=== PATIENT | female | born 1930 | race African-American/Black ===

== ENCOUNTER 2018-06-06 22:59 | Inpatient (IN) | payer MEDICARE, BC ==
[~2018-06-06] VITALS: Ht 167.6 cm; Wt 74.6 kg
[~2018-06-06 22:59] MED LIST: AMLO2.5T45 PO; LOPHC5 PO; RIVA10TA PO
[2018-06-06] MEDS ORDERED: SODIUM CHLORIDE 0.9% 500 ML IV ONE (23:22)
[2018-06-06] MEDS ORDERED: ATROPINE SULFATE 1MG/ML VIAL IV ONE (23:30)
[2018-06-06 23:33] LABS: BG BASE EXCESS -2.8 mmol/L (-2.0-2.0); BG CARBOXYHEMOGLOBIN 0.5 % (0.5-1.5); BG DEOXYHEMOGLOBIN 1.6 % (0.0-5.0); BG FRACTION INSPIRED OXYGEN 21; BG HCO3 ACT 18.6 mmol/L (22.0-26.0); BG METHEMOGLOBIN 0.3 % (0.0-1.5); BG OXYGEN SATURATION 98.4 % (92.0-98.5); BG OXYHEMOGLOBIN 97.6 % (94.0-97.0); BG PH 7.506 (7.350-7.450); BG PO2 108.5 mmHg (75.0-100.0); BG SAMPLE SITE RIGHT RADIAL; BG TOTAL HEMOGLOBIN 13.4 g/dL (12.0-18.0); BG VENT MODE ROOM AIR
[2018-06-07] VITALS (33 sets, daily range): BP systolic 98–168; BP diastolic 48–87
[2018-06-07 00:14] LABS: BASOPHILS % 0.3 % (0.0-2.0); EOSINOPHILS % 1.2 % (0.0-5.0); HEMATOCRIT. 37.6 % (36.0-48.0); LYMPHOCYTES % 14.9 % (20.0-50.0); MEAN CORPUSCULAR HEMOGLOBIN 29.4 pg (28.0-32.0); MEAN CORPUSCULAR VOLUME 91.8 fL (81.0-99.0); MEAN PLATELET VOLUME 9.5 fl (7.4-10.4); MONOCYTES % 10.4 % (2.0-8.0); NEUTROPHILS % 73.2 % (40.0-76.0); PLATELET 220 x1000/uL (130-400); RED BLOOD CELL COUNT 4.09 mill/uL (4.2-5.4); RED CELL DISTRIBUTION WIDTH 13.9 % (11.6-14.6)
[2018-06-07] MEDS ORDERED: DOPAMINE 400MG PREMIX 250 ML IV ONE ×5 (00:15→10:16)
[2018-06-07 00:19] LABS: INR 1.1; PARTIAL THROMBOPLASTIN TIME 35.1 sec (23.4-31.0); PROTHROMBIN TIME 10.9 sec (9.1-11.1)
[2018-06-07 00:20] LABS: CHLORIDE 104 mEq/L (98-107)
[2018-06-07 00:28] LABS: T4 FREE 1.22 ng/dL (0.76-1.46)
[2018-06-07] MEDS ORDERED: METOCLOPRAMIDE HCL 10MG/2ML VIAL IV ONE (01:15)
[2018-06-07] MEDS ORDERED: ASPIRIN 81MG TABLET PO ONE (02:00)
[2018-06-07] MEDS ORDERED: ONDANSETRON HCL 4MG/2ML INJ IV PRN ×2 (07:44→12:30)
[2018-06-07 12:09] LABS: INR 1.1; PROTHROMBIN TIME 11.4 sec (9.1-11.1)
[2018-06-07] MEDS ORDERED: MAGNESIUM/ALUMINUM HYDROXIDE/SIMETHICONE 30ML UDC PO PRN (12:30)
[2018-06-07] MEDS ORDERED: LORAZEPAM 0.5MG TABLET PO PRN (12:30)
[2018-06-07] MEDS ORDERED: ACETAMINOPHEN 325MG TABLET PO PRN (12:30)
[2018-06-07] MEDS ORDERED: DOPAMINE 800MG PREMIX 250 ML IV PRN (12:30)
[2018-06-07] MEDS ORDERED: ZOLPIDEM TARTRATE 5MG TABLET PO PRN (12:45)
[2018-06-07] MEDS ORDERED: MAGNESIUM HYDROXIDE 400MG/5ML 30ML UDC PO PRN (12:45)
[2018-06-07] MEDS ORDERED: GENTAMICIN/NS IRRIGATION 500 ML IR ONE (15:33)
[2018-06-07] MEDS ORDERED: CEFAZOLIN 1000MG PREMIX 100 ML IV ONE (15:33)
[2018-06-07] MEDS ORDERED: MIDAZOLAM HCL 2 MG/2 ML VIAL ONE (16:49)
[2018-06-07] MEDS ORDERED: DIPHENHYDRAMINE 50MG/ML VIAL ONE (16:50)
[2018-06-07] MEDS ORDERED: FENTANYL CITRATE/PF 50MCG/ML 2ML VIAL ONE (16:50)
[2018-06-07] MEDS ORDERED: LIDOCAINE HCL 1% 20ML VIAL (Pyxis) INJ ONE (17:07)
[2018-06-07] MEDS: TRAMADOL 50MG TABLET PO PRN (20:23)
[2018-06-07] MEDS ORDERED: VANCOMYCIN 1 G PREMIX 200 ML IV SCH (21:00)
[2018-06-07] MEDS ORDERED: DEXTROSE 50% WATER 50ML SYRINGE IV PRN (22:30)
[2018-06-07] MEDS: BLOOD SUGAR DIAGNOSTIC STRIP TEST SCH (22:38)
[2018-06-07] MEDS: INSULIN LISPRO 100 UNITS/ML SUBCUT SCH (23:00)
[2018-06-08] VITALS (42 sets, daily range): BP systolic 95–148; BP diastolic 22–119
[2018-06-08 06:36] LABS: BASOPHILS % 0.1 % (0.0-2.0); EOSINOPHILS % 0.1 % (0.0-5.0); HEMATOCRIT. 35.4 % (36.0-48.0); HEMOGLOBIN. 11.4 g/dL (12.0-16.0); LYMPHOCYTES % 11.5 % (20.0-50.0); MEAN CORPUSCULAR HEMOGLOBIN 29.5 pg (28.0-32.0); MEAN CORPUSCULAR VOLUME 91.9 fL (81.0-99.0); MEAN PLATELET VOLUME 9.5 fl (7.4-10.4); MONOCYTES % 10.4 % (2.0-8.0); NEUTROPHILS % 77.9 % (40.0-76.0); PLATELET 197 x1000/uL (130-400); RED BLOOD CELL COUNT 3.86 mill/uL (4.2-5.4); RED CELL DISTRIBUTION WIDTH 14.3 % (11.6-14.6)
[2018-06-08] MEDS: BLOOD SUGAR DIAGNOSTIC STRIP TEST SCH ×4 (07:50→20:48)
[2018-06-08] MEDS: INSULIN LISPRO 100 UNITS/ML SUBCUT SCH ×3 (08:20→20:48)
[2018-06-08] MEDS ORDERED: AMLODIPINE 2.5MG TABLET PO SCH (09:00)
[2018-06-08] MEDS: TRAMADOL 50MG TABLET PO PRN (09:07)
[2018-06-08] MEDS: APIXABAN 5 MG TABLET PO SCH ×2 (09:45→18:29)
[2018-06-08] MEDS ORDERED: METOPROLOL TARTRATE 25MG TABLET PO SCH (10:00)
[2018-06-08] MEDS: AMLODIPINE 5MG TABLET PO SCH ×2 (10:00→20:48)
[2018-06-08] MEDS ORDERED: VANCOMYCIN 500 MG PREMIX 100 ML IV SCH (12:00)
[2018-06-08] MEDS: JANUVIA 50 MG PO SCH (20:48)
[2018-06-09] VITALS (11 sets, daily range): BP systolic 108–167; BP diastolic 51–108
[2018-06-09] MEDS: BLOOD SUGAR DIAGNOSTIC STRIP TEST SCH ×3 (06:22→17:14)
[2018-06-09] MEDS: INSULIN LISPRO 100 UNITS/ML SUBCUT SCH ×3 (06:22→17:20)
[2018-06-09 07:30] LABS: BASOPHILS % 0.3 % (0.0-2.0); EOSINOPHILS % 1.5 % (0.0-5.0); HEMATOCRIT. 35.5 % (36.0-48.0); HEMOGLOBIN. 11.5 g/dL (12.0-16.0); LYMPHOCYTES % 15.7 % (20.0-50.0); MEAN CORPUSCULAR HEMOGLOBIN 29.8 pg (28.0-32.0); MEAN CORPUSCULAR VOLUME 91.8 fL (81.0-99.0); MEAN PLATELET VOLUME 9.9 fl (7.4-10.4); NEUTROPHILS % 72.5 % (40.0-76.0); PLATELET 210 x1000/uL (130-400); RED BLOOD CELL COUNT 3.87 mill/uL (4.2-5.4); RED CELL DISTRIBUTION WIDTH 14.1 % (11.6-14.6)
[2018-06-09] MEDS: AMLODIPINE 5MG TABLET PO SCH (08:41)
[2018-06-09] MEDS: APIXABAN 5 MG TABLET PO SCH ×2 (08:41→18:31)
[2018-06-09] MEDS: JANUVIA 50 MG PO SCH (08:42)
== END 2018-06-09 19:19 | DRG 261 ==
LOC: ER 22:59 → CVICU 23:58 → EDBEDREQTM 06-07 01:49 → EDBEDREQ 06-07 01:49 → EDBEDREQDT 06-07 01:49 → CANRESERV 06-07 07:03 → ENRESERV 06-07 07:03 → 3WST 06-08 17:49
PROVIDERS: ADMIT Specialist; ATTEND Specialist
PROC: 02WA3MZ Revision of Cardiac Lead in Heart, Percutaneous Approach (ICD-10-PCS; principal; 2018-06-07)
PROC: 4B02XSZ Measurement of Cardiac Pacemaker, External Approach (ICD-10-PCS; 2018-06-07)
DX: T82.128A Displacement of other cardiac electronic device, initial encounter (principal); I50.32 Chronic diastolic (congestive) heart failure; I44.2 Atrioventricular block, complete; I49.5 Sick sinus syndrome; I11.0 Hypertensive heart disease with heart failure; Y83.9 Surgical procedure, unspecified as the cause of abnormal reaction of the patient, or of later complication, without mention of misadventure at the time of the procedure; D72.829 Elevated white blood cell count, unspecified; E11.9 Type 2 diabetes mellitus without complications; I25.10 Atherosclerotic heart disease of native coronary artery without angina pectoris; I48.2 Chronic atrial fibrillation; Z79.01 Long term (current) use of anticoagulants; Z95.0 Presence of cardiac pacemaker; Z82.49 Family history of ischemic heart disease and other diseases of the circulatory system; Z90.710 Acquired absence of both cervix and uterus; Y92.89 Other specified places as the place of occurrence of the external cause; Z88.5 Allergy status to narcotic agent; Z88.8 Allergy status to other drugs, medicaments and biological substances; Z79.899 Other long term (current) drug therapy
CPT/HCPCS: 33215; 36415; 36600; 71045; 80048; 82375; 82805; 82962; 83735; 83880; 84439; 84443; 84484; 93005; 96361; 96374; 97116; 97162; 97530; 99291; A4565; J0461; J0690; J1200; J1265; J2250; J2405; J2765; J3010; J3370; J3490; J7040; J7050

== ENCOUNTER 2018-06-09 19:20 | Inpatient (IN) | payer MEDICARE, BC ==
[~2018-06-09] VITALS: Ht 167.6 cm; Wt 73.2 kg
[2018-06-09 20:00] VITALS: BP 130/58
[2018-06-09] MEDS ORDERED: LORAZEPAM 0.5MG TABLET PO PRN (21:15)
[2018-06-09] MEDS ORDERED: DEXTROSE 50% WATER 50ML SYRINGE IV PRN (21:15)
[2018-06-09] MEDS ORDERED: ONDANSETRON HCL 4MG/2ML INJ IV PRN (21:15)
[2018-06-09] MEDS ORDERED: MAGNESIUM HYDROXIDE 400MG/5ML 30ML UDC PO PRN (21:15)
[2018-06-09] MEDS ORDERED: TRAMADOL 50MG TABLET PO PRN ×2 (21:15→21:30)
[2018-06-09] MEDS ORDERED: MAGNESIUM/ALUMINUM HYDROXIDE/SIMETHICONE 30ML UDC PO PRN (21:15)
[2018-06-09] MEDS ORDERED: ZOLPIDEM TARTRATE 5MG TABLET PO PRN (21:15)
[2018-06-09] MEDS ORDERED: NON FORMULARY PATIENT HOME MED EA XX SCH (21:15)
[2018-06-09] MEDS ORDERED: ACETAMINOPHEN 325MG TABLET PO PRN (21:15)
[2018-06-09] MEDS: INSULIN LISPRO 100 UNITS/ML SUBCUT SCH (22:00)
[2018-06-09] MEDS: AMLODIPINE 5MG TABLET PO SCH (22:10)
[2018-06-09] MEDS: BLOOD SUGAR DIAGNOSTIC STRIP TEST SCH (22:10)
[2018-06-10] MEDS: BLOOD SUGAR DIAGNOSTIC STRIP TEST SCH ×4 (06:21→21:03)
[2018-06-10 08:00] VITALS: BP 135/65
[2018-06-10] MEDS: INSULIN LISPRO 100 UNITS/ML SUBCUT SCH ×4 (09:00→21:00)
[2018-06-10] MEDS ORDERED: LINAGLIPTIN 5MG TABLET PO SCH (09:00)
[2018-06-10] MEDS: AMLODIPINE 5MG TABLET PO SCH ×2 (09:00→20:12)
[2018-06-10] MEDS: APIXABAN 5 MG TABLET PO SCH ×2 (09:31→17:35)
[2018-06-10] MEDS: JANUVIA 50 MG PO SCH (09:32)
[2018-06-10] MEDS: DOCUSATE SODIUM 100MG CAPSULE PO SCH (17:35)
[2018-06-10] MEDS: BISACODYL 5MG TABLET PO PRN (17:35)
[2018-06-10 20:00] VITALS: BP 165/78
[2018-06-10] MEDS: GABAPENTIN 100MG CAPSULE PO SCH (20:12)
[2018-06-10 21:00] VITALS: BP 153/74
[2018-06-11] MEDS: BISACODYL 5MG TABLET PO PRN (05:53)
[2018-06-11] MEDS: BLOOD SUGAR DIAGNOSTIC STRIP TEST SCH ×4 (05:53→21:36)
[2018-06-11] MEDS: INSULIN LISPRO 100 UNITS/ML SUBCUT SCH ×4 (05:53→21:00)
[2018-06-11 07:07] LABS: BASOPHILS % 0.2 % (0.0-2.0); HEMATOCRIT. 34.4 % (36.0-48.0); HEMOGLOBIN. 11.4 g/dL (12.0-16.0); LYMPHOCYTES % 16.8 % (20.0-50.0); MEAN CORPUSCULAR HEMOGLOBIN 30.2 pg (28.0-32.0); MEAN CORPUSCULAR VOLUME 91.4 fL (81.0-99.0); MEAN PLATELET VOLUME 9.3 fl (7.4-10.4); MONOCYTES % 10.5 % (2.0-8.0); NEUTROPHILS % 69.5 % (40.0-76.0); PLATELET 260 x1000/uL (130-400); RED BLOOD CELL COUNT 3.77 mill/uL (4.2-5.4); RED CELL DISTRIBUTION WIDTH 14.1 % (11.6-14.6)
[2018-06-11 07:36] LABS: CHLORIDE 109 mEq/L (98-107)
[2018-06-11] MEDS ORDERED: UBID50TA3 PO (07:46)
[2018-06-11] MEDS ORDERED: MULT-1195 PO (07:46)
[2018-06-11] MEDS ORDERED: CHOL100053 PO (07:46)
[2018-06-11] MEDS ORDERED: CALC1TAB4 PO (07:46)
[2018-06-11 08:00] VITALS: BP 138/66
[2018-06-11] MEDS: AMLODIPINE 5MG TABLET PO SCH ×2 (09:10→21:35)
[2018-06-11] MEDS: APIXABAN 5 MG TABLET PO SCH ×2 (09:10→17:37)
[2018-06-11] MEDS: DOCUSATE SODIUM 100MG CAPSULE PO SCH ×2 (09:10→17:37)
[2018-06-11] MEDS: JANUVIA 50 MG PO SCH (09:12)
[2018-06-11] MEDS ORDERED: NA PHOS,M-B/NA PHOS,DI-BA ENEMA 118ML PR PRN (11:30)
[2018-06-11] MEDS ORDERED: VIT D2 PO SCH (14:00)
[2018-06-11] MEDS: COQ10 100 MG PO SCH (14:47)
[2018-06-11] MEDS: CENTRUM SILVER TABLET PO SCH (14:47)
[2018-06-11] MEDS: VITAMIN B12 PO SCH (14:50)
[2018-06-11 20:00] VITALS: BP 146/62
[2018-06-11] MEDS: GABAPENTIN 100MG CAPSULE PO SCH (21:35)
[2018-06-11] MEDS: [UNRECOGNIZED DRUG - OTHER] PO SCH (21:36)
[2018-06-11] MEDS: CALTRATE PO SCH (21:36)
[2018-06-12] MEDS: BLOOD SUGAR DIAGNOSTIC STRIP TEST SCH ×4 (05:58→21:51)
[2018-06-12] MEDS: INSULIN LISPRO 100 UNITS/ML SUBCUT SCH ×4 (07:40→21:00)
[2018-06-12 08:00] VITALS: BP 133/69
[2018-06-12] MEDS: APIXABAN 5 MG TABLET PO SCH ×2 (09:24→17:24)
[2018-06-12] MEDS: DOCUSATE SODIUM 100MG CAPSULE PO SCH ×2 (09:24→17:24)
[2018-06-12] MEDS: COQ10 100 MG PO SCH (09:24)
[2018-06-12] MEDS: AMLODIPINE 5MG TABLET PO SCH ×2 (09:24→21:51)
[2018-06-12] MEDS: CENTRUM SILVER TABLET PO SCH (09:24)
[2018-06-12] MEDS: VITAMIN B12 PO SCH (09:26)
[2018-06-12] MEDS: JANUVIA 50 MG PO SCH (09:28)
[2018-06-12 20:00] VITALS: BP 125/62
[2018-06-12] MEDS: [UNRECOGNIZED DRUG - OTHER] PO SCH (21:50)
[2018-06-12] MEDS: GABAPENTIN 100MG CAPSULE PO SCH (21:50)
[2018-06-12] MEDS: CALTRATE PO SCH (21:50)
[2018-06-13] MEDS: BLOOD SUGAR DIAGNOSTIC STRIP TEST SCH ×4 (06:58→21:45)
[2018-06-13] MEDS: INSULIN LISPRO 100 UNITS/ML SUBCUT SCH ×4 (07:45→21:00)
[2018-06-13 07:53] VITALS: BP 134/68
[2018-06-13] MEDS: JANUVIA 50 MG PO SCH ×2 (09:00→18:59)
[2018-06-13] MEDS: APIXABAN 5 MG TABLET PO SCH ×2 (09:34→17:31)
[2018-06-13] MEDS: DOCUSATE SODIUM 100MG CAPSULE PO SCH ×2 (09:34→17:32)
[2018-06-13] MEDS: AMLODIPINE 5MG TABLET PO SCH ×2 (09:34→21:44)
[2018-06-13] MEDS: COQ10 100 MG PO SCH (09:35)
[2018-06-13] MEDS: VITAMIN B12 PO SCH (09:35)
[2018-06-13] MEDS: CENTRUM SILVER TABLET PO SCH (09:35)
[2018-06-13 20:00] VITALS: BP 160/58
[2018-06-13] MEDS: GABAPENTIN 100MG CAPSULE PO SCH (21:43)
[2018-06-13] MEDS: [UNRECOGNIZED DRUG - OTHER] PO SCH (21:44)
[2018-06-13] MEDS: CALTRATE PO SCH (21:44)
[2018-06-14] MEDS: INSULIN LISPRO 100 UNITS/ML SUBCUT SCH ×4 (06:38→21:00)
[2018-06-14] MEDS: BLOOD SUGAR DIAGNOSTIC STRIP TEST SCH ×4 (06:38→21:43)
[2018-06-14 07:13] LABS: BASOPHILS % 0.2 % (0.0-2.0); EOSINOPHILS % 3.7 % (0.0-5.0); HEMATOCRIT. 34.9 % (36.0-48.0); HEMOGLOBIN. 11.5 g/dL (12.0-16.0); LYMPHOCYTES % 17.8 % (20.0-50.0); MEAN CORPUSCULAR HEMOGLOBIN 29.9 pg (28.0-32.0); MEAN CORPUSCULAR VOLUME 90.4 fL (81.0-99.0); MEAN PLATELET VOLUME 8.8 fl (7.4-10.4); MONOCYTES % 12.4 % (2.0-8.0); NEUTROPHILS % 65.9 % (40.0-76.0); PLATELET 292 x1000/uL (130-400); RED BLOOD CELL COUNT 3.86 mill/uL (4.2-5.4); RED CELL DISTRIBUTION WIDTH 14.3 % (11.6-14.6)
[2018-06-14 08:00] VITALS: BP 133/66
[2018-06-14 08:16] LABS: CHLORIDE 107 mEq/L (98-107)
[2018-06-14] MEDS: DOCUSATE SODIUM 100MG CAPSULE PO SCH ×2 (10:14→16:46)
[2018-06-14] MEDS: AMLODIPINE 5MG TABLET PO SCH ×2 (10:15→21:43)
[2018-06-14] MEDS: APIXABAN 5 MG TABLET PO SCH ×2 (10:15→16:46)
[2018-06-14] MEDS: JANUVIA 50 MG PO SCH ×2 (10:16→10:19)
[2018-06-14] MEDS: COQ10 100 MG PO SCH (11:24)
[2018-06-14] MEDS: CENTRUM SILVER TABLET PO SCH (11:24)
[2018-06-14] MEDS: VITAMIN B12 PO SCH (11:25)
[2018-06-14 20:00] VITALS: BP 126/57
[2018-06-14] MEDS: GABAPENTIN 100MG CAPSULE PO SCH (21:42)
[2018-06-14] MEDS: [UNRECOGNIZED DRUG - OTHER] PO SCH (21:42)
[2018-06-14] MEDS: CALTRATE PO SCH (21:42)
[2018-06-15] MEDS: BLOOD SUGAR DIAGNOSTIC STRIP TEST SCH ×4 (06:30→20:44)
[2018-06-15 08:00] VITALS: BP 124/80
[2018-06-15] MEDS: INSULIN LISPRO 100 UNITS/ML SUBCUT SCH ×4 (09:00→20:44)
[2018-06-15] MEDS: APIXABAN 5 MG TABLET PO SCH ×2 (09:25→17:41)
[2018-06-15] MEDS: DOCUSATE SODIUM 100MG CAPSULE PO SCH ×2 (09:25→17:41)
[2018-06-15] MEDS: AMLODIPINE 5MG TABLET PO SCH ×2 (09:26→20:44)
[2018-06-15] MEDS: VITAMIN B12 PO SCH (09:26)
[2018-06-15] MEDS: CENTRUM SILVER TABLET PO SCH (09:26)
[2018-06-15] MEDS: JANUVIA 50 MG PO SCH (09:27)
[2018-06-15] MEDS: COQ10 100 MG PO SCH (09:27)
[2018-06-15 20:00] VITALS: BP 150/72
[2018-06-15] MEDS: GABAPENTIN 100MG CAPSULE PO SCH (20:43)
[2018-06-15] MEDS: CALTRATE PO SCH (20:45)
[2018-06-15] MEDS: [UNRECOGNIZED DRUG - OTHER] PO SCH (20:45)
[2018-06-16] MEDS ORDERED: TRAMADOL 50MG TABLET PO PRN ×2 (03:30→03:45)
[2018-06-16] MEDS ORDERED: LORAZEPAM 0.5MG TABLET PO PRN (03:30)
[2018-06-16] MEDS ORDERED: ZOLPIDEM TARTRATE 5MG TABLET PO PRN (03:30)
[2018-06-16] MEDS: INSULIN LISPRO 100 UNITS/ML SUBCUT SCH ×4 (06:04→21:00)
[2018-06-16] MEDS: BLOOD SUGAR DIAGNOSTIC STRIP TEST SCH ×4 (06:04→21:12)
[2018-06-16 07:45] LABS: BASOPHILS % 0.9 % (0.0-2.0); EOSINOPHILS % 2.5 % (0.0-5.0); HEMATOCRIT. 36.4 % (36.0-48.0); HEMOGLOBIN. 12.1 g/dL (12.0-16.0); LYMPHOCYTES % 17.9 % (20.0-50.0); MEAN CORPUSCULAR HEMOGLOBIN 30.4 pg (28.0-32.0); MEAN CORPUSCULAR VOLUME 91.7 fL (81.0-99.0); MEAN PLATELET VOLUME 8.4 fl (7.4-10.4); MONOCYTES % 10.5 % (2.0-8.0); NEUTROPHILS % 68.2 % (40.0-76.0); PLATELET 328 x1000/uL (130-400); RED BLOOD CELL COUNT 3.97 mill/uL (4.2-5.4); RED CELL DISTRIBUTION WIDTH 14.4 % (11.6-14.6)
[2018-06-16 08:00] VITALS: BP 118/71
[2018-06-16] MEDS: DOCUSATE SODIUM 100MG CAPSULE PO SCH ×2 (08:29→16:08)
[2018-06-16] MEDS: COQ10 100 MG PO SCH (08:29)
[2018-06-16] MEDS: APIXABAN 5 MG TABLET PO SCH ×2 (08:29→16:08)
[2018-06-16] MEDS: CENTRUM SILVER TABLET PO SCH (08:29)
[2018-06-16] MEDS: AMLODIPINE 5MG TABLET PO SCH ×2 (08:30→21:12)
[2018-06-16] MEDS: JANUVIA 50 MG PO SCH (08:32)
[2018-06-16] MEDS: VITAMIN B12 PO SCH (09:00)
[2018-06-16] MEDS: [UNRECOGNIZED DRUG - OTHER] PO SCH (21:12)
[2018-06-16] MEDS: GABAPENTIN 100MG CAPSULE PO SCH (21:12)
[2018-06-16] MEDS: CALTRATE PO SCH (21:12)
[2018-06-17] MEDS: BLOOD SUGAR DIAGNOSTIC STRIP TEST SCH ×3 (06:50→16:10)
[2018-06-17] MEDS: INSULIN LISPRO 100 UNITS/ML SUBCUT SCH ×3 (06:51→16:10)
[2018-06-17 08:22] VITALS: BP 110/68
[2018-06-17] MEDS: COQ10 100 MG PO SCH (08:41)
[2018-06-17] MEDS: DOCUSATE SODIUM 100MG CAPSULE PO SCH ×2 (08:42→16:10)
[2018-06-17] MEDS: CENTRUM SILVER TABLET PO SCH (08:42)
[2018-06-17] MEDS: APIXABAN 5 MG TABLET PO SCH ×2 (08:43→16:10)
[2018-06-17] MEDS: AMLODIPINE 5MG TABLET PO SCH ×2 (08:46→16:20)
[2018-06-17] MEDS: VITAMIN B12 PO SCH (08:52)
[2018-06-17] MEDS: JANUVIA 50 MG PO SCH (08:52)
[2018-06-17 15:38] VITALS: BP 146/71
== END 2018-06-17 17:50 | disposition home health service (06) | DRG 947 ==
PROVIDERS: ADMIT Psychiatry & Neurology Neurology; ATTEND Specialist
DX: R53.81 Other malaise (principal); G82.50 Quadriplegia, unspecified; I50.32 Chronic diastolic (congestive) heart failure; I48.2 Chronic atrial fibrillation; E11.9 Type 2 diabetes mellitus without complications; G89.29 Other chronic pain; M19.90 Unspecified osteoarthritis, unspecified site; I11.0 Hypertensive heart disease with heart failure; M16.0 Bilateral primary osteoarthritis of hip; R26.9 Unspecified abnormalities of gait and mobility; R00.1 Bradycardia, unspecified; D72.829 Elevated white blood cell count, unspecified; F39 Unspecified mood [affective] disorder; Z95.0 Presence of cardiac pacemaker; Z90.710 Acquired absence of both cervix and uterus; Z79.01 Long term (current) use of anticoagulants; Z88.6 Allergy status to analgesic agent; Z88.8 Allergy status to other drugs, medicaments and biological substances
CPT/HCPCS: 36415; 80048; 82962; 83735; 93005; 93970; 97110; 97112; 97116; 97162; 97167; 97530; 97535